=== PATIENT | male | born 2000 | race Caucasian/White ===

== ENCOUNTER 2022-08-22 08:46 | Emergency (ER) | payer OTHER, SELFPAY ==
[2022-08-22 08:56] VITALS: BP 135/68; PULSE 70; RESP 14; TEMP 37.1; O2SAT 100
--- NOTE | 2022-08-22 09:37 | ECG_ITS ---
Measurements Intervals [place] Rate: 67 P: 61 UT: 141 QRS: 79 QRSD: 94 T: 47 QT: 395 QTc: 419 Interpretive Statements SINUS RHYTHM MINIMAL Q WAVES- INF/LAT LEADS BORDERLINE ECG NO PREVIOUS ECG AVAILABLE FOR COMPARISON Electronically Signed On 08-22-2022 11:56:29 CDT by Hunter Staples D.O.
--- NOTE | 2022-08-22 09:39 | ED.GENADULT ---
HPI - General Adult General Chief complaint: Unspecified Stated complaint: lightheaded/ right shoulder spasm Time Seen by Provider: 08/22/22 09:03 History of Present Illness HPI narrative: 22-year-old male presented to the department for evaluation of intermittent fasciculations and associated lightheaded and dizziness. Patient states he does work out quite heavily over the last few weeks. He states he does play pickle ball outside, does [employer] and has been going to the gym multiple times during the week. He did have follow-up with urgent care yesterday and they suspected this was due to dehydration and encouraged rehydration and rest. Patient states he did drink some fluids yesterday but states he still is having the symptoms. Patient denies any associated chest pain or shortness of breath. Patient denies any other specific falls or injuries. Patient does admit to taking multiple workout supplements. Related Data Allergies Allergy/AdvReac Type Severity Reaction Status Date / Time No Known Allergies Allergy Unknown Verified 08/22/22 09:11 Review of Systems Review of Systems: All systems reviewed & are unremarkable except as noted in HPI and below Exam Narrative: APPEARANCE: Well appearing, no pain, no distress, well-nourished. HEAD: normocephalic, atraumatic. EYES: PERRLA/EOMI, conjunctivae clear. NOSE: Normal no drainage NECK: Supple. No adenopathy, no masses. RESPIRATORY: Airway patent, respirations nonlabored. Clear to auscultation bilaterally, no rales, rhonchi, wheezing. CARDIOVASCULAR: Regular rate and rhythm without murmurs rubs or gallops. ABDOMINAL: Soft, nontender, nondistended, normal bowel sounds MUSCULOSKELETAL: Moves all extremities. Strength/ROM intact, No edema, No calf tenderness. NEURO: Alert. Cranial nerves II through XII intact. Intact SKIN: Warm, dry. Normal Color Course Course Emergency Course: 22-year-old male presented ED for evaluation of fasciculations lightheadedness and dizziness. Patient was afebrile with no leukocytosis and a stable hemoglobin. Patient had no significant electrolyte abnormalities. Patient did have an elevation in his total protein and creatinine kinase but patient does take multiple workout supplements. Patient also had +2 ketones and was treated with 2 L normal saline. Patient family were updated on the results of the work-up and patient was comfortable with plan for discharge and close follow-up. Vital Signs Vital signs: Vital Signs Temperature 98.7 F 08/22/22 08:56 Pulse Rate 70 08/22/22 08:56 Respiratory Rate 14 08/22/22 08:56 Blood Pressure 135/68 08/22/22 08:56 Pulse Oximetry 100 08/22/22 08:56 Oxygen Delivery Room Air 08/22/22 08:56 Temperature 98.7 F 08/22/22 08:56 Pulse Rate 69 08/22/22 12:00 Respiratory Rate 14 08/22/22 12:00 Blood Pressure 129/69 08/22/22 12:00 Pulse Oximetry 100 08/22/22 12:00 Oxygen Delivery Room Air 08/22/22 08:56 Medical Decision Making Differential Diagnosis Differential Diagnosis: Dehydration, rhabdomyolysis, fasciculations Vital Signs Vital Signs: Vital Signs Temperature 98.7 F 08/22/22 08:56 Pulse Rate 70 08/22/22 08:56 Respiratory Rate 14 08/22/22 08:56 Blood Pressure 135/68 08/22/22 08:56 Pulse Oximetry 100 08/22/22 08:56 Oxygen Delivery Room Air 08/22/22 08:56 Temperature 98.7 F 08/22/22 08:56 Pulse Rate 69 08/22/22 12:00 Respiratory Rate 14 08/22/22 12:00 Blood Pressure 129/69 08/22/22 12:00 Pulse Oximetry 100 08/22/22 12:00 Oxygen Delivery Room Air 08/22/22 08:56 Lab Data Lab results reviewed: Yes I reviewed the patient's lab results. 08/22/22 10:03 08/22/22 10:03 Labs: Lab Results 08/22/22 Range/Units 10:03 WBC 8.6 (4.5-10.0) K/mm3 RBC 5.18 (4.6-6.20) M/mm3 Hgb 15.5 (14.0-18.0) g/dL Hct 46.8 (42.0-52.0) % MCV 90.3 (80-100) fl MCH 29.9 (26-34) pg MCHC
[2022-08-22] MEDS: SODIUM CHLORIDE 0.9% IV 1,000 ML 999 ML IV CONT ×2 (10:20→11:16)
[2022-08-22 10:21] LABS: Basophils Absolute Auto 0.1 K/mm3 (0.0-0.1); Basophils Percent Auto 0.6 % (0.2-1.2); Eosinophils Percent Auto 0.1 % (0-4.4); Hematocrit 46.8 % (42.0-52.0); Hemoglobin 15.5 g/dL (14.0-18.0); Immature Granulocyte Absolute 0.04 K/mm3 (0.00-0.031); Immature Granulocyte Percent A 0.5 % (0-0.5); Lymphocytes Absolute Auto 0.96 K/mm3 (0.9-3.2); Lymphocytes Percent Auto 11.1 % (18.3-44.2); Mean Corpuscular HGB Conc 33.1 g/dl (32-36); Mean Corpuscular Hemoglobin 29.9 pg (26-34); Mean Corpuscular Volume 90.3 fl (80-100); Mean Platelet Volume 9.7 fl (7.4-10.4); Monocytes Absolute Auto 0.5 K/mm3 (0.1-0.6); Monocytes Percent Auto 5.7 % (2.6-8.5); Neutrophils Absolute Auto 7.1 K/mm3 (1.3-6.7); Platelet Count Result 258 k/mm3 (150-375); Red Blood Count 5.18 M/mm3 (4.6-6.20); White Blood Count 8.6 K/mm3 (4.5-10.0)
[2022-08-22 10:26] LABS: Appearance Urine Clear (Clear); Bilirubin Urine Negative (Negative); Blood Urine Negative (Negative); Color Urine Yellow (Yellow); Glucose Urine UA Negative (Negative); Ketones Urine 2+ mg/dL (Negative); Leukocyte Esterase Ur Negative LEU/UL (Negative); Nitrate Urine Negative (Negative); Protein Urine Negative (Negative); Specific Grav Ur 1.015 (1.001-1.035); Urobilinogen Urine 0.2 mg/dL (<2.0)
[2022-08-22 10:34] LABS: Alanine Aminotransferase 41 U/L (6-50); Alkaline Phosphatase 117 U/L (38-126); Anion Gap 7 mmol/L (8-16); Aspartate Amino Transferase 44 U/L (17-59); Blood Urea Nitrogen 15 mg/dL (9-20); Calcium 9.3 mg/dL (8.4-10.2); Carbon Dioxide 29 mmol/L (22-30); Chloride 102 mmol/L (98-107); Creatine Kinase 312 U/L (55-170); Estimated CRCL calculation 93 ml/min; Estimated Glomerular Filt Rate > 60; Glucose 100 mg/dL (65-110); Magnesium 2.1 mg/dL (1.6-2.3); Sodium 138 mmol/L (137-145)
[2022-08-22 11:17] LABS: Add Urine Microscopic? NO
[2022-08-22 11:18] VITALS: BP 117/60; PULSE 72; RESP 16; O2SAT 100
[2022-08-22 12:00] VITALS: BP 129/69; PULSE 69; RESP 14; O2SAT 100
== END 2022-08-22 12:16 | disposition home or self-care (01) ==
PROVIDERS: Emergency Provider Emergency Medicine
DX: R25.3 Fasciculation (principal); E86.0 Dehydration; R94.31 Abnormal electrocardiogram [ECG] [EKG]
CPT/HCPCS: 36415; 80053; 81003; 82550; 83735; 85025; 93005; 96360; 96361; 99283; J7030

== ENCOUNTER 2022-10-14 10:37 | Emergency (ER) | payer OTHER, SELFPAY ==
[2022-10-14 10:39] VITALS: BP 143/75; PULSE 72; RESP 18; TEMP 36.3; O2SAT 100
[2022-10-14] MEDS: LIDO 1%/EPINEPHRINE 1:100,000 50 ML VIAL INFILTRATE (11:53)
--- NOTE | 2022-10-14 12:06 | ED.SKABFB ---
HPI - Skin/Abscess/Foreign Bdy General Chief complaint: Skin/Abscess/Foreign Body Stated complaint: skin infection Time Seen by Provider: 10/14/22 10:51 History of Present Illness HPI narrative: Patient is a 22-year-old male who presents ER with concerns for infection to his left thigh. Was diagnosed with cellulitis earlier in the week and started on Augmentin. He continues to have some pain but the redness is decreased. Occasionally feels like there is drainage. No fevers or chills or sweats. Related Data Home Medications Medication Instructions Recorded Confirmed amoxicillin 875 mg-potassium tablet 10/14/22 clavulanate 125 mg tablet triamcinolone acetonide 0.5 % topical 10/14/22 topical ointment Allergies Allergy/AdvReac Type Severity Reaction Status Date / Time No Known Allergies Allergy Unknown Verified 10/14/22 10:42 Review of Systems Constitutional: Constitutional: Denies chills and Denies fever(s) Musculoskeletal: Musculoskeletal: Denies arthralgias, Denies joint swelling and Denies muscle cramps Integumentary/Breasts: Skin/Breast: Reports erythema, Denies rash and Reports skin ulcer PMFSH Past Medical History Medical History (Updated 10/14/22 @ 17:47 by Joey Farrell MD) Healthy adult male Surgical History Surgical History (Updated 10/14/22 @ 17:47 by Joey Farrell MD) No history of previous surgery Exam Narrative: GENERAL: Well-appearing, well-nourished, and in no acute distress. HEAD: Normocephalic, atraumatic. EXTREMITIES: Normal range of motion. No edema. SKIN: Warm, dry. Small area mid thigh on the left side that seems consistent with partially treated abscess. Skin is slightly darkened but not erythematous or warm to touch. NEURO: Alert and oriented x3. PSYCH: Normal mood and affect. Course Course Emergency Course: Successful I&D of abscess left thigh. Continue home antibiotics. Discussed warm compresses for the next 24 hours. Not amenable to packing Vital Signs Vital signs: Vital Signs Temperature 97.3 F L 10/14/22 10:39 Pulse Rate 72 10/14/22 10:39 Respiratory Rate 18 10/14/22 10:39 Blood Pressure 143/75 H 10/14/22 10:39 Pulse Oximetry 100 10/14/22 10:39 Temperature 97.3 F L 10/14/22 10:39 Pulse Rate 55 L 10/14/22 12:25 Respiratory Rate 17 10/14/22 12:25 Blood Pressure 142/66 H 10/14/22 12:25 Pulse Oximetry 100 10/14/22 12:25 Procedures Abscess I/D lower extremity: Date of Incision: 10/14/22 Time of Incision: 11:50 Side (if applicable): left Local Anesthetic: lidocaine 1% and with epi Amount of anesthesia used (mL): 2 Technique: incised with #11 blade Irrigation: No Packing used?: none I&D Results: Pus Discharge Plan Discharge Clinical Impression: Abscess of left thigh Patient Disposition: Home, Self-Care Condition: Stable Instructions: Antibiotic Form, Abscess (ED) Additional Instructions: Finish your antibiotics. Return the ER if you have fever over 100.4 ?F, you cannot keep down food or water, you lose consciousness, you have additional concerns. Prescriptions: No Action triamcinolone acetonide 0.5 % ointment TOPICAL amoxicillin-pot clavulanate 875-125 mg tablet Follow-up/Referrals: PHYSICIAN NOT ON STAFF,NONSTAFF [Primary Care Provider] - 1 Week
[2022-10-14 12:25] VITALS: BP 142/66; PULSE 55; RESP 17; O2SAT 100
== END 2022-10-14 12:20 | disposition home or self-care (01) ==
PROVIDERS: Emergency Provider Emergency Medicine
DX: L02.416 Cutaneous abscess of left lower limb (principal)
CPT/HCPCS: 10060; 99282

== ENCOUNTER 2022-10-15 13:34 | Emergency (ER) | payer OTHER, SELFPAY ==
[2022-10-15 13:48] VITALS: BP 153/80; PULSE 75; RESP 14; TEMP 36.6; O2SAT 100
--- NOTE | 2022-10-15 17:30 | PC.NURSE ---
called patient to place to repeat VS without response.
== END 2022-10-15 19:59 | disposition left against medical advice (07) ==
DX: R68.83 Chills (without fever) (principal)
CPT/HCPCS: 99199

== ENCOUNTER 2022-11-10 17:30 | Emergency (ER) | payer OTHER, SELFPAY ==
[2022-11-10 17:38] VITALS: BP 130/72; PULSE 72; RESP 18; TEMP 36.9; O2SAT 100
--- NOTE | 2022-11-10 17:47 | ED.GENADULT ---
HPI - General Adult General Chief complaint: Extremity Injury, Lower Stated complaint: Right Leg Irritation Time Seen by Provider: 11/10/22 17:47 Source: patient, RN notes reviewed and old records reviewed Mode of arrival: ambulatory Limitations: no limitations History of Present Illness HPI narrative: 22 [facility] of having a staph infection to his left upper thigh last month and noted today that he had pustular lesion with yellow head on his right upper thigh. Patient reports that he took Augmentin in the last part of September and into first part of October and had to have I/D of his other wound. Patient reports that he doesn't want to wait and let this sore get as bad as other one did. He denies any fevers, chills, or sweats, small pustular lesion noted to right thigh with purulent drainage, able to obtain small amount of purulent drainage from wound with culture sent. Patient reports that he works out at a gym performing tracx and there have been others lately getting staph infections. MD complaint: pustular lesion right thigh Onset (ago): day(s) (today noted lesion right thigh) Location: lower extremity (right anterior upper thigh) Treatments prior to arrival: none Related Data Allergies Allergy/AdvReac Type Severity Reaction Status Date / Time No Known Allergies Allergy Unknown Verified 11/10/22 17:37 Review of Systems Review of Systems: CONSTITUTIONAL: Denies fever, chills, or sweats. CARDIOVASCULAR: Denies chest pain, palpitations, or edema. RESPIRATORY: Denies cough or dyspnea. GASTROINTESTINAL: Denies abdominal pain, nausea, vomiting SKIN: Reports redness with small lesion with pustular head to right upper thigh, small amount surrounding redness of lesion no warmth, no pain beyond proportion MUSCULOSKELETAL: Denies myalgia. NEUROLOGIC: Denies headache, numbness All systems reviewed & are unremarkable except as noted in HPI and below PMFSH Past Medical History Medical History (Updated 11/13/22 @ 10:03 by Delmy Wang NP) Healthy adult male Staph infection Surgical History Surgical History (Updated 10/14/22 @ 17:47 by Joey Farrell MD) No history of previous surgery Social History Social History (Updated 11/13/22 @ 10:02 by Delmy Wang NP) Smoking status: Never smoker Alcohol intake: current Alcohol use details: rare Substance use type: does not use Living arrangements: with family Gender identity (if verbalized by the patient): Male Comments At time of signature, agree with nursing past medical, surgical, social and family history. There is no relevant family history pertinent to the presenting complaint Exam Narrative: GENERAL: Well-appearing, well-nourished, and in no acute distress. HEAD: Normocephalic, atraumatic. EYES: PERRLA and EOMI. ENT: Nares clear, no rhinorrhea or epistaxis. Mucous membranes moist. NECK: Supple.no lymphadenopathy CHEST: Clear to auscultation. No respiratory distress.SAO2 100% on room air HEART: Regular rate and rhythm. No murmur heard. Normal peripheral pulses. ABDOMEN: Soft, nontender, nondistended, normal active bowel sounds. EXTREMITIES: Normal range of motion. No edema. SKIN: Warm, dry. Erythema, induration,minimal tenderness with no warmth, surrounding erythema 1.5 cm with pustular lesion 0.3cm with yellowish white drainage noted. NEURO: No focal deficits. Alert and oriented x3. Course Course Emergency Course: Patient is aware of diagnosis, understands and agrees to treatment plan. Anticipatory guidance given. Patient agrees to follow-up as directed and is aware of reasons to seek care at the emergency department. Portions of this record may have been created with voice recognition software Level of Care: Express Care Visit Vital Signs Vital signs: Vital Signs Temperature 36.9 C 11/10/22 17:38 Pulse Rate 72 11/10/22 17:38 Respiratory Rate 18 11/10/22 17:38
== END 2022-11-10 18:15 | disposition home or self-care (01) ==
PROVIDERS: Emergency Provider Registered Nurse
DX: L02.415 Cutaneous abscess of right lower limb (principal)
CPT/HCPCS: 87070; 87075; 87205; 99213; G0463